=== PATIENT | female | born 1985 | race Caucasian/White ===

== ENCOUNTER 2020-05-16 10:36 | Emergency (ER) | payer BC, SELFPAY ==
[2020-05-16 10:54] VITALS: BP 120/80; PULSE 72; RESP 16; TEMP 36.8; O2SAT 99; BMI 27.4
--- NOTE | 2020-05-16 10:59 | DI.RAD.S_ITS ---
PROCEDURE: XR TOE RT MIN 2V INDICATIONS: laceration from hatchet TECHNIQUE: 3 views of the 2nd toe(s) acquired. COMPARISON: None. FINDINGS: Bones: No fractures or dislocations. No suspicious bony lesions. Soft tissues: Soft tissue irregularity is seen involving 2nd toe. No radiopaque foreign bodies are seen. IMPRESSION: Soft tissue irregularity is seen involving the 2nd toe, without an acute bony abnormality identified. If there is strong suspicion for developing osteomyelitis, please consider a dedicated MRI without and with contrast for further evaluation (assuming that there is no contraindication to MRI). Dictated by: Marco A Nagel M.D. on 05/16/2020 at 10:52 Approved by: Marco A Nagel M.D. on 05/16/2020 at 10:52
--- NOTE | 2020-05-16 11:11 | ED.WOUNDLAC ---
HPI - Wound/Laceration <Tierney Gerardo PA-C - Last Filed: 05/16/20 22:00> General Chief Complaint: Wound/Laceration Stated Complaint: Cut/chopped part of right second toe w/ax Time Seen by Provider: 05/16/20 11:02 Source: patient Mode of arrival: Ambulatory History of Present Illness HPI narrative: A previously healthy 35-year-old woman who presents to the emergency department complaining of a laceration to her right 2nd toe sustained yesterday when she was chopping wood while camping. This happened around 7:00 p.m. at night, she thinks that the Axe bounced somehow became down on her foot, she was wearing tennis shoes and thin socks, the blade went through both of these and into the top of her foot. She said there it will to control the bleeding with direct pressure and they put ?lots of Neosporin over it? she did not wash it at the time or seek medical care at that time as they were camping. She has been keeping her entire lower leg elevated, she has kept it wrapped. She has barely walked on it as she wanted to assess the bone for injury before bearing weight on it. Her pain is about a 2/10 but it comes to a 7/10 with manipulation or palpation of her toe. She has no previous injury to this area and no previous surgery to this area. She believes she had her tetanus shot in both of her recent pregnancies, once 4 years ago and once 6 years ago. Onset (ago): hour(s) (22) Extremity Location: Right: foot (2nd toe) Place: outdoors Patient tetanus UTD: Yes Context: accidental Associated symptoms: pain Treatments prior to arrival: bandage and other (neosporin) Related Data Previous Rx's Medication Instructions Recorded cephalexin [Keflex] 500 mg PO BID #10 cap MDD 1000mg 05/16/20 Allergies Allergy/AdvReac Type Severity Reaction Status Date / Time No Known Drug Allergies Allergy Verified 05/16/20 10:58 Review of Systems <Tierney Gerardo PA-C - Last Filed: 05/16/20 22:00> Review of Systems Narrative: GENERAL: Denies chills, fatigue, malaise, fever, sweats. HEENT: Denies sinus pain, ear pain, sore throat, difficulty swallowing, dizziness. RESPIRATORY: Denies dyspnea, cough, wheezing, hemoptysis, sputum. CARDIOVASCULAR: Denies chest pain, palpitations, orthopnea, edema, GASTROINTESTINAL: Denies nausea, vomiting, abdominal pain, diarrhea, constipation, melena. : Denies dysuria, frequency, incontinence, hematuria, urinary retention. MUSCULOSKELETAL: denies weakness, joint pain, or bony pain SKIN: Positive for wound on the top of her right 2nd toe over the joint. Denies rash, skin lesions, or other NEUROLOGIC: Denies weakness, headache, numbness, change in speech, confusion, seizures, incoordination. PSYCHIATRIC: No concerning psychosocial issues. 12 point review of systems is negative except for those stated above Patient History <Tierney Gerardo PA-C - Last Filed: 05/16/20 22:00> Social History Smoking Status: Never smoker Smoking Status: Never smoker alcohol intake frequency: 0-2 drinks per day Substance Use Type: does not use Exam <Tierney Gerardo PA-C - Last Filed: 05/16/20 22:00> Narrative Exam Narrative: GENERAL: 35 year old patient appears stated age. Well-nourished, well-developed patient, in mild distress. HEAD: Atraumatic. Normocephalic. EYES: Pupils equal round and reactive. Extraocular motions intact. No scleral icterus. No injection or drainage. ENT: Nose without bleeding, purulent drainage. Throat without erythema, tonsillar hypertrophy or exudate. Airway patent. NECK: Trachea midline. Non tender CARDIOVASCULAR: Regular rate and rhythm without murmurs, gallops, or rubs. RESPIRATORY: Clear to auscultation. Breath sounds equal bilaterally. No wheezes, rales, or rhonchi. GASTROINTESTINAL: Abdomen soft, non-tender, nondistended. EXTREMITIES: There is a full-thickness laceration approximately 1 cm in length over the 2nd toe dorsally on the right side, range of motion is intact of the toes she is able to flex and extend at the toes, with increased pain, there is minimal swelling, bleeding is controlled. Capillary refill is intact, sensation is intact. No edema or joint tenderness. BACK: Nontender without deformity or crepitance. No flank tenderness. NEURO: AOx3. SKIN: No rash or erythema of visible areas Initial Vital Signs Initial Vital Signs: Vital Signs Temperature 98.2 F 05/16/20 10:54 Pulse Rate 72 05/16/20 10:54 Respiratory Rate 16 05/16/20 10:54 Blood Pressure 120/80 05/16/20 10:54 Pulse Oximetry 99 05/16/20 10:54 <Brigida Kilgore MD - Last Filed: 05/17/20 18:09> Initial Vital Signs Initial Vital Signs: Vital Signs Temperature 98.2 F 05/16/20 10:54 Pulse Rate 72 05/16/20 10:54 Respiratory Rate 16 05/16/20 10:54 Blood Pressure 120/80 05/16/20 10:54 Pulse Oximetry 99 05/16/20 10:54 Procedures <Tierney Gerardo PA-C - Last Filed: 05/16/20 22:00> Laceration Repair Laceration 1: Site: lower extremity (right foot 2nd toe) Side (If applicable): right Size (cm): 2.7 Description: linear, irregular and contaminated Depth: simple, single layer Local Anesthetic: lidocaine 1% and with bicarb Amount of anesthesia used (mL): 6 Pre-repair: wound explored, irrigated extensively, deep structures intact and extensive debridement Skin layer closed with: nylon Size (cm): 5-0 Number of sutures: 9 Technique: simple, interrupted Scores <JUDAH Bright Last Filed: 05/16/20 22:00> GCS Deb coma scale eye opening: Spontaneous [place] coma scale verbal response: Orientated Deb coma scale motor response: Obey commands [place] coma scale total score: 15 Course <JUDAH Bright Last Filed: 05/16/20 22:00> Orders Ordered: Discontinued Medications Lidocaine/Sodium Bicarbonate (Buffered Lidocaine 10 Ml Syr) 10 ml INJ NOW ONE Stop: 05/16/20 11:20 Last Admin: 05/16/20 11:47 Dose: 10 ml Documented by: SHONA Tetanus/Diphtheria Toxoids (Td) 0.5 ml IM .ONCE ONE Stop: 05/16/20 10:59 Last Admin: 05/16/20 11:50 Dose: Not Given Documented by: SHONA Vital Signs Vital signs: Vital Signs - 8 hr 05/16/20 10:54 Temperature 98.2 F Pulse Rate 72 Respiratory Rate 16 Blood Pressure 120/80 Pulse Oximetry 99 <Brigida Kilgore MD - Last Filed: 05/17/20 18:09> Orders Ordered: Discontinued Medications Lidocaine/Sodium Bicarbonate (Buffered Lidocaine 10 Ml Syr) 10 ml INJ NOW ONE Stop: 05/16/20 11:20 Last Admin: 05/16/20 11:47 Dose: 10 ml Documented by: SHONA Tetanus/Diphtheria Toxoids (Td) 0.5 ml IM .ONCE ONE Stop: 05/16/20 10:59 Last Admin: 05/16/20 11:50 Dose: Not Given Documented by: SHONA Vital Signs Vital signs: Vital Signs - 8 hr 05/16/20 10:54 Temperature 98.2 F Pulse Rate 72 Respiratory Rate 16 Blood Pressure 120/80 Pulse Oximetry 99 MDM - Wound/Laceration <Tierney Gerardo PA-C - Last Filed: 05/16/20 22:00> Differential Diagnosis Differential diagnosis: Likely laceration, avulsion of skin and other (tendon injury, bone injury, vascular injury, nerve injury) Medical Records Attestation: I reviewed the patient's medical records. Imaging Data Extremity x-ray #1: Attestation: I personally reviewed and interpreted this imaging study as follows: Radiologist's Impression: [place] [address] XRay Report Signed Patient: Zuleyma Morales [facility]#: [id number] : 1985Acct:[id number] Age/Sex: 35 / FDate of Service: 05/16/20 Loc: ED Accession Number: [id number] Procedure: XR toe RT min 2V Ordering Provider: Brigida Kilgore MD PROCEDURE: XR TOE RT MIN 2V INDICATIONS: laceration from hatchet TECHNIQUE: 3 views of the 2nd toe(s) acquired. COMPARISON: None. FINDINGS: Bones: No fractures or dislocations. No suspicious bony lesions. Soft tissues: Soft tissue irregularity is seen involving 2nd toe. No radiopaque foreign bodies are seen. IMPRESSION: Soft tissue irregularity is seen involving the 2nd toe, without an acute bony abnormality identified. If there is strong suspicion for developing osteomyelitis, please consider a dedicated MRI without and with contrast for further evaluation (assuming that there is no contraindication to MRI). Dictated by: Marco A Nagel M.D. on 05/16/2020 at 10:52 Approved by: Marco A Nagel M.D. on 05/16/2020 at 10:52 [facility] Narrative Medical decision making narrative: Well-appearing previously healthy 35-year-old presents with deep laceration to her right 2nd toe sustained from an Axe injury yesterday evening while she was camping. X-ray does not suggest fracture or damage to bone, her range of motion is intact, I have low suspicion for tendon damage however she could potentially have tendon sheath involvement, wound is extensively cleaned, debrided and washed in the emergency department prior to repair as above with sutures. Given the location of the wound, duration since the injury occurred and possible tendon sheath involvement antibiotics for prophylaxis are provided. Patient is also provided with a orthopedic shoe as she arrived in the emergency department without issue on the right side. Emergency return precautions provided, all questions answered. Patient will follow-up with her primary care physician. Work note is provided. Discharge Plan Departure Patient Disposition: Home Clinical Impression: Laceration Pain in toe Qualifiers: Laterality: right Qualified Code(s): M79.674 - Pain in right toe(s) Discharge Date/Time: 05/16/20 13:56 Instructions: How to Care for a Laceration After Repair, DI for Laceration Repair Activity Restrictions/Additional Instructions: Thank you for letting us to be part of your care today in the emergency department. There is no evidence of fracture or involvement of your bone on the x-ray, your range of motion is intact in you toe and I suspect your tendons are also okay. We repaired your wound with sutures and these will need to come out in 8-10 days. Please monitor for signs of infection, please keep the area clean you can leave it dry but you can also sometimes put antibiotic ointment on a few 1, given the location of your wound and the delay in closure, I have also prescribed antibiotics for you. Please take these as prescribed. Please follow-up with your primary care doctor for suture removal and if you have new or worsening symptoms please do not hesitate to seek medical care sooner. There is no evidence of an emergent or life threatening illness at this time, but follow up with your doctor in 1-2 days is recommended nonetheless to continue to rule out serious underlying causes of your symptoms. Please call the office for an appointment. Please return to the Emergency Department for any worsening or persistent symptoms. Please take medications as directed. Prescriptions: New cephalexin [Keflex] 500 mg capsule 500 mg PO BID MDD 1000mg Qty: 10 RF: 0 Referrals: Lebron Hamilton PA-C [Non-Staff] - Stand Alone Forms: Work Release Note <Brigida Kilgore MD - Last Filed: 05/17/20 18:09> Cosign ED Attending Cosdarwinature Attestation: I was immediately available in the department for consultation throughout this patient's visit. I agree with documentation as above. Brigida Kilgore MD
--- NOTE | 2020-05-16 11:41 | PC.NURSE ---
Gave ice water
[2020-05-16] MEDS: LIDO 1%/SOD BICARB 8.4% (10ML) 10 ML SYRINGE INJ (11:47)
[2020-05-16] MEDS: DIPHTH,PERTUSS(ACELL),TET VAC 0.5 ML SYRINGE IM (11:49)
[2020-05-16 13:54] VITALS: BP 109/70; PULSE 62; RESP 12; O2SAT 99
== END 2020-05-16 13:56 | disposition home or self-care (01) ==
PROVIDERS: Emergency Provider Student in an Organized Health Care Education/Training Program
DX: S91.114A Laceration without foreign body of right lesser toe(s) without damage to nail, initial encounter (principal); M79.674 Pain in right toe(s); W27.0XXA Contact with workbench tool, initial encounter; Z23 Encounter for immunization
CPT/HCPCS: 12002; 73660; 90471; 90715; 99283